=== PATIENT | male | born 1960 | race Caucasian/White ===

== ENCOUNTER 2018-12-05 10:41 | Emergency (ER) | payer OTHER ==
[~2018-12-05] VITALS: Ht 175.3 cm; Wt 79.0 kg
[2018-12-05 10:58] VITALS: BP 153/78
== END 2018-12-05 11:57 | disposition home or self-care (01) ==
LOC: ED 11:50
DX: B34.9 Viral infection, unspecified (principal)
CPT/HCPCS: 71046; 99283